=== PATIENT | female | born 1960 | race African-American/Black ===

== ENCOUNTER → 2016-12-18 | Outpatient (CLI) | payer OTHER ==
[~2016-12-18] MED LIST: AUGMENTIN 875875 MG PO; BACTRIM DS TAB1 EACH PO; ERYTHROMYCIN E3.5 G1 OP; IBUPROFEN 600600 M1 PO; KEFLEX500 MG PO; NAPROSYN500 MG PO; NOHOMEMEDICATIONS; NORCO 5-325 TA1 EACH PO; PAXIL10 MG PO
== END ==
LOC: ULTRA 13:27 → RAD 13:27
DX: R92.8 Other abnormal and inconclusive findings on diagnostic imaging of breast (principal)

== ENCOUNTER 2017-04-08 17:57 | Emergency (ER) | payer OTHER ==
[~2017-04-08] VITALS: Ht 160 cm; Wt 79.4 kg
[2017-04-08] MEDS ORDERED: NAPROSYN500 MG PO (19:51)
[2017-04-08] MEDS ORDERED: NORFLEX100 MG PO (19:51)
[2017-04-08 20:08] VITALS: BP 167/86
== END 2017-04-08 20:11 | disposition home or self-care (01) ==
LOC: ER 17:57
DX: S16.1XXA Strain of muscle, fascia and tendon at neck level, initial encounter (principal); S39.012A Strain of muscle, fascia and tendon of lower back, initial encounter; F17.210 Nicotine dependence, cigarettes, uncomplicated; F10.99 Alcohol use, unspecified with unspecified alcohol-induced disorder; V89.2XXA Person injured in unspecified motor-vehicle accident, traffic, initial encounter; Y93.89 Activity, other specified; Y92.89 Other specified places as the place of occurrence of the external cause; Y99.8 Other external cause status

== ENCOUNTER 2020-11-25 18:24 | Emergency (ER) | payer OTHER ==
[~2020-11-25] VITALS: Ht 162.6 cm; Wt 63.5 kg
[~2020-11-25 18:24] MED LIST changes: +NORFLEX100 MG PO
[2020-11-25 19:35] LABS: ABSOLUTE NEUTROPHILS 2.4 thou/uL (1.4-8.2); BASOPHILS 1.2 % (0.0-2.0); EOSINOPHILS 5.8 % (0.0-3.0); HEMATOCRIT 37.7 % (37.0-47.0); HEMOGLOBIN 12.6 gm/dL (12.0-15.0); LYMPHOCYTES 33.7 % (24.0-44.0); MCH 29.3 pg (26.0-34.0); MCHC 33.3 g/dL (28.0-37.0); MCV 87.8 fL (80.0-100.0); MONOCYTES 8.6 % (1.0-8.0); PLATELET COUNT 253 thou/uL (150-400); POLYS 50.7 % (36.0-66.0); RBC 4.29 mil/uL (4.20-5.00); WBC 4.7 thou/uL (4.0-11.0)
[2020-11-25 19:43] LABS: CALCIUM 9.2 mg/dL (8.5-10.1); CREATININE 1.1 mg/dL (0.6-1.0); POTASSIUM 3.8 mmol/L (3.5-5.1)
[2020-11-25 19:49] LABS: TOTAL BILIRUBIN 0.8 mg/dL (0.2-1.0); TOTAL PROTEIN 7.3 g/dL (6.4-8.2)
[2020-11-25] MEDS ORDERED: PREDNISONE 20 M20 MG PO (20:58)
[2020-11-25] MEDS ORDERED: DOXYCYCLINE 10100 MG PO (20:58)
[2020-11-25] MEDS ORDERED: PROAIR HFA8.5 GM INH (20:58)
[2020-11-25 21:28] VITALS: BP 150/65
--- NOTE | 2020-11-27 14:04 | EKG ---
[address] [address] ELECTROCARDIOGRAM REPORT Name: ANNELISE OSMAN Room #: DEP [facility]ENTERAyah#: [id number] Admission: 11/25/20 Attend Phys: Discharge: 11/25/20 Date of : 60 Report #: [id number] [facility] ED Test Date: 2020-11-25 Test Time: 19:27:41 Pat Name: ANNELISE OSMAN Department: Room: Gender: F [place]: JCHAILIONZ : 1960 Requested By: Jake Stanford Order Number: [id number] MD: Albert Mckeon Measurements Intervals [place] Rate: 75 P: 39 [place]: 176 QRS: 64 QRSD: 80 T: 49 QT: 395 QTc: 442 Interpretive Statements Sinus rhythm No significant abnormality No previous ECG available for comparison Electronically Signed On 11-27-2020 14:04:35 TRANSPORTATION AIDE by Albert Mckeon [email or web address] <ELECTRONICALLY SIGNED> By: Albert Mckeon MD, [facility] 11/27/20 1404 1927 26 Albert Mckeon MD, FACC /EPI
== END 2020-11-25 21:53 | disposition home or self-care (01) ==
LOC: ER 18:24
PROVIDERS: Nurse Practitioner
DX: J44.1 Chronic obstructive pulmonary disease with (acute) exacerbation (principal); F17.210 Nicotine dependence, cigarettes, uncomplicated; Z20.822 Contact with and (suspected) exposure to COVID-19

== ENCOUNTER → 2020-12-27 | Outpatient (CLI) | payer OTHER ==
[~2020-12-27] MED LIST changes: +DOXYCYCLINE 10100 MG PO; +PREDNISONE 20 M20 MG PO; +PROAIR HFA8.5 GM INH
[2020-12-27 16:40] LABS: CREATININE 0.8 mg/dL (0.6-1.0)
== END ==
LOC: LAB 16:07
PROVIDERS: ATTEND Pediatrics
DX: R06.02 Shortness of breath (principal)

== ENCOUNTER → 2020-12-29 | Outpatient (CLI) | payer OTHER | LOC: CAT 12:50 | PROVIDERS: ATTEND Pediatrics | DX: R91.1 Solitary pulmonary nodule (principal); M47.814 Spondylosis without myelopathy or radiculopathy, thoracic region ==

== ENCOUNTER → 2021-05-26 | Outpatient (CLI) | payer OTHER | LOC: BC 15:29 | PROVIDERS: ATTEND Family Medicine | DX: Z12.31 Encounter for screening mammogram for malignant neoplasm of breast (principal) ==

== ENCOUNTER 2021-09-08 18:09 | Emergency (ER) | payer OTHER ==
[~2021-09-08] VITALS: Ht 160 cm; Wt 72.6 kg
[2021-09-08 23:15] LABS: HEMATOCRIT 39.3 % (37.0-47.0); HEMOGLOBIN 12.9 gm/dL (12.0-15.0); MCH 29.6 pg (26.0-34.0); MCHC 32.8 g/dL (28.0-37.0); RBC 4.37 mil/uL (4.20-5.00); RDW 13.8 % (10.5-14.5); WBC 4.8 thou/uL (4.0-11.0)
[2021-09-08 23:24] LABS: CREATININE 0.9 mg/dL (0.6-1.0)
[2021-09-08 23:31] LABS: ALBUMIN 3.9 g/dL (3.4-5.0); DIRECT BILIRUBIN 0.2 mg/dL (<0.1-0.2); TOTAL BILIRUBIN 0.8 mg/dL (0.2-1.0); TOTAL PROTEIN 7.1 g/dL (6.4-8.2)
[2021-09-09] MEDS ORDERED: PROAIR HFA8.5 GM INH (01:03)
[2021-09-09] MEDS ORDERED: PREDNISONE 20 M20 MG PO (01:03)
[2021-09-09] MEDS ORDERED: DOXYCYCLINE 10100 MG PO (01:03)
[2021-09-09 01:06] VITALS: BP 155/86
--- NOTE | 2021-09-09 12:03 | EKG ---
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: TERRENCE : 1960 Requested By: Geoff Rincon Order Number: [id number] MD: Albert Mckeon Measurements Intervals [place] Rate: 79 P: 44 [place]: 179 QRS: 46 QRSD: 80 T: 91 QT: 404 QTc: 464 Interpretive Statements Sinus rhythm Borderline T wave abnormalities Compared to ECG 11/25/2020 19:27:41 T-wave abnormality now present Electronically Signed On 09-09-2021 12:03:49 POLICY WRITER by Albert Mckeon [email or web address] <ELECTRONICALLY SIGNED> By: Albert Mckeon MD, [facility] 09/09/21 1203 1849 1849 Albert Mckeon MD, FACC /EPI
== END 2021-09-09 01:06 | disposition home or self-care (01) ==
LOC: ER 18:09
PROVIDERS: Emergency Medicine
DX: J44.1 Chronic obstructive pulmonary disease with (acute) exacerbation (principal); Z20.822 Contact with and (suspected) exposure to COVID-19; F17.210 Nicotine dependence, cigarettes, uncomplicated; Z98.51 Tubal ligation status; Z79.51 Long term (current) use of inhaled steroids; Z79.899 Other long term (current) drug therapy